=== PATIENT | male | born 1970 | race African-American/Black ===

== ENCOUNTER 2020-11-06 14:12 | Emergency (ER) | payer OTHER ==
[2020-11-06] MEDS ORDERED: IBUPROFEN 600 MG TABLET (FP) PO ONE ×2 (14:29→14:40)
[2020-11-06] MEDS ORDERED: AMOX TR/POT CLAV 875MG/125MG TABLETS (FP) PO ONE (14:29)
[2020-11-06 14:40] VITALS: BP 134/92; PULSE 95; TEMP 99.7; BMI 29.3
[2020-11-06] MEDS ORDERED: AMOX TR/POT CLAV 875MG/125MG TABLETS (FP) ONE (14:40)
== END 2020-11-06 14:51 | disposition home or self-care (01) ==
LOC: FER 14:12
DX: J01.90 Acute sinusitis, unspecified (principal)
CPT/HCPCS: 99283-25; C9803; U0003